=== PATIENT | female | born 1995 | race African-American/Black ===

== ENCOUNTER 2018-05-08 19:48 | Emergency (ER) | payer OTHER | END 2018-05-08 22:18 | disposition home or self-care (01) | LOC: M ED 19:48 | DX: S50.862A Insect bite (nonvenomous) of left forearm, initial encounter (principal); W57.XXXA Bitten or stung by nonvenomous insect and other nonvenomous arthropods, initial encounter; Y92.89 Other specified places as the place of occurrence of the external cause; Z88.0 Allergy status to penicillin; Z79.899 Other long term (current) drug therapy | CPT/HCPCS: 99283 ==

== ENCOUNTER 2018-06-02 13:42 | Emergency (ER) | payer OTHER | END 2018-06-02 15:01 | disposition left against medical advice (07) | LOC: M ED 13:42 | DX: Z53.29 Procedure and treatment not carried out because of patient's decision for other reasons (principal) ==

== ENCOUNTER 2018-06-03 10:25 | Emergency (ER) | payer OTHER ==
[2018-06-03] MEDS: FLEET ENEMA PR (12:12)
[2018-06-03 12:39] LABS: AMORPHOUS SEDIMENT RFX SMALL (NEGATIVE); KETONE, URINE AUTO RFX NEGATIVE (NEGATIVE); LEUKOCYTE ESTERASE UR AUTO RFX NEGATIVE (NEGATIVE); MUCUS, URINE RFX SMALL (NEGATIVE); NITRITE, URINE AUTO RFX NEGATIVE (NEGATIVE); RBC, URINE AUTO RFX 59 /HPF (0-3); SPECIFIC GRAVITY UR AUTO RFX 1.027 (1.002-1.035); SQUAM EPITHELIAL CELL UR AURFX 0 /HPF (0-6); WBC, URINE AUTO RFX 1 /HPF (0-3)
[2018-06-03] MEDS: NS 1,000 ML IV (12:48)
[2018-06-03 12:57] LABS: BASO % 0.5 % (0.0-1.0); EOS # 0.1 10^3/uL (0.0-0.50); EOS % 0.8 % (0.0-3.0); HEMATOCRIT 45.8 % (42.0-52.0); HEMOGLOBIN 15.3 g/dl (13.5-17.5); IMMATURE GRANULOCYTE % 0.2 % (0-3.0); LYMPH # 1.9 10^3/uL (1.5-6.5); LYMPH % 30.9 % (24.0-44.0); MEAN CORPUSCULAR HEMOGLOBIN 27.8 pg (27.0-33.0); MEAN CORPUSCULAR HGB CONC 33.4 g/dl (32.0-36.5); MEAN CORPUSCULAR VOLUME 83.3 fl (80.0-96.0); MONO # 0.8 10^3/uL (0.0-0.8); MONO % 13.2 % (0.0-5.0); NEUTROPHILS # 3.3 10^3/uL (1.8-7.7); NEUTROPHILS % 54.4 % (36.0-66.0); PLATELET COUNT, AUTOMATED 182 10^3/uL (150-450); RED CELL DISTRIBUTION WIDTH 12.7 % (11.5-14.5)
[2018-06-03] MEDS: GASTROGRAFIN SOLUTION 30ML PO ×2 (13:00→13:37)
[2018-06-03 13:22] LABS: ANION GAP 5 MEQ/L (8-16); BLOOD UREA NITROGEN 11 MG/DL (7-18); CALCIUM LEVEL 9.1 MG/DL (8.5-10.1); CARBON DIOXIDE LEVEL 29 MEQ/L (21-32); CHLORIDE LEVEL 106 MEQ/L (98-107); CREATININE FOR GFR 0.84 MG/DL (0.70-1.30); GLOMERULAR FILTRATION RATE > 60.0 (>60); GLUCOSE, FASTING 83 MG/DL (70-100); POTASSIUM SERUM 4.3 MEQ/L (3.5-5.1); SODIUM LEVEL 140 MEQ/L (136-145)
[2018-06-03] MEDS ORDERED: ISOVUE-370 76% 100ML VIAL (Q9967) As Ordered (13:50)
[2018-06-03 16:09] LABS: CONTROL LINE INT CTR LINE PRESENT; HIV SCRN NEGATIVE (NEGATIVE); HIV SCRN1 NEGATIVE (NEGATIVE)
[2018-06-03] MEDS: MAGNESIUM CITRATE 300 ML BTL PO (16:36)
== END 2018-06-03 16:45 | disposition home or self-care (01) ==
LOC: M ED 10:25
DX: K52.9 Noninfective gastroenteritis and colitis, unspecified (principal); N28.1 Cyst of kidney, acquired; Z79.899 Other long term (current) drug therapy; Z88.0 Allergy status to penicillin
CPT/HCPCS: Q9963

== ENCOUNTER 2018-12-02 08:15 | Emergency (ER) | payer OTHER ==
[~2018-12-02] VITALS: Ht 170.2 cm; Wt 63.6 kg
[~2018-12-02 08:15] MED LIST: ACUTANE PO; MIRA3350 PO
[2018-12-02] MEDS ORDERED: TRUVTAB (08:21)
[2018-12-02 08:50] LABS: HEMATOCRIT 54.1 % (42.0-52.0); HEMOGLOBIN 18.1 g/dl (13.5-17.5); MEAN CORPUSCULAR HEMOGLOBIN 27.6 pg (27.0-33.0); MEAN CORPUSCULAR HGB CONC 33.5 g/dl (32.0-36.5); MEAN CORPUSCULAR VOLUME 82.5 fl (80.0-96.0); PLATELET COUNT, AUTOMATED 223 10^3/uL (150-450); RED BLOOD COUNT 6.56 10^6/uL (4.30-6.10)
[2018-12-02 09:12] LABS: AMPHETAMINES LEVEL URINE NEGATIVE (NEGATIVE); BARBITURATES URINE NEGATIVE (NEGATIVE); BENZODIAZEPINES URINE NEGATIVE (NEGATIVE); CANNABINOIDS URINE NEGATIVE (NEGATIVE); COCAINE METABOLITE URINE NEGATIVE (NEGATIVE); METHADONE URINE NEGATIVE (NEGATIVE); OPIATES URINE NEGATIVE (NEGATIVE); PHENCYCLIDINE URINE NEGATIVE (NEGATIVE)
[2018-12-02 09:40] LABS: ACETAMINOPHEN LEVEL < 2.0 UG/ML (10.0-30.0); ALBUMIN 4.7 GM/DL (3.2-5.2); ALT/SGPT 39 U/L (12-78); BILIRUBIN,DIRECT 0.2 MG/DL (0.0-0.2); BILIRUBIN,TOTAL 0.8 MG/DL (0.2-1.0); BLOOD UREA NITROGEN 11 MG/DL (7-18); CALCIUM LEVEL 9.6 MG/DL (8.5-10.1); CARBON DIOXIDE LEVEL 28 MEQ/L (21-32); CHLORIDE LEVEL 105 MEQ/L (98-107); ETHYL ALCOHOL (ETHANOL) < 0.003 % (0.000-0.010); GLOMERULAR FILTRATION RATE > 60.0 (>60); GLUCOSE, FASTING 89 MG/DL (70-100); POTASSIUM SERUM 4.2 MEQ/L (3.5-5.1); SALICYLATE LEVEL < 1.7 MG/DL (5.0-30.0); SODIUM LEVEL 139 MEQ/L (136-145); TOTAL PROTEIN 8.6 GM/DL (6.4-8.2)
--- NOTE | 2018-12-02 11:35 | REP ---
CHEST, TWO VIEWS: There is no evidence of acute infiltrate. No pleural effusion is seen. The heart is normal in size. The mediastinal silhouette is unremarkable. The visualized osseous structures are intact. IMPRESSION: No acute pulmonary disease. Electronically Signed by Kash Mas MD 12/02/2018 12:00 P
[2018-12-02 12:18] VITALS: BP 135/90
[2018-12-02] MEDS ORDERED: PRED20TA PO (17:35)
[2018-12-02] MEDS ORDERED: NORC1TAB4 PO ×2 (17:35→17:39)
--- NOTE | 2018-12-03 07:18 | ECGEPIP ---
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
== END 2018-12-02 12:19 | disposition home or self-care (01) ==
LOC: M ED 08:15
DX: F33.9 Major depressive disorder, recurrent, unspecified (principal); Z88.0 Allergy status to penicillin
CPT/HCPCS: 36415; 71046; 80048; 80076; 80307; 84443; 85027; 93005; 99284; G0480

== ENCOUNTER 2018-12-02 15:26 | Emergency (ER) | payer OTHER ==
[~2018-12-02] VITALS: Ht 170.2 cm; Wt 63.6 kg
[~2018-12-02 15:26] MED LIST changes: +TRUVTAB
[2018-12-02] MEDS ORDERED: PRED20TA PO (17:35)
[2018-12-02] MEDS ORDERED: NORC1TAB4 PO ×2 (17:35→17:39)
[2018-12-02] MEDS ORDERED: NORCO, ANEXSIA 5/325MG TABLET (HYDROcodone/ACETAMINOPHEN) PO ONE (17:45)
[2018-12-02] MEDS ORDERED: predniSONE 20 MG TAB PO ONE (17:45)
[2018-12-02 17:55] VITALS: BP 136/78
[2018-12-02] MEDS ORDERED: NORCO 5/325MG TABLET (BULK FOR ED) PO ONE (18:00)
--- NOTE | 2018-12-03 07:21 | ECGEPIP ---
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 Order Number: [id number] Reading MD: Maritza Trammell Measurements Intervals [place] Rate: 88 P: 49 [place]: 149 QRS: 69 QRSD: 80 T: 52 QT: 322 QTc: 390 Interpretive Statements SINUS RHYTHM INCREASED RATE 12/02/18 Electronically Signed On 12-03-2018 7:20:59 EST by Maritza Trammell
== END 2018-12-02 17:59 | disposition home or self-care (01) ==
LOC: M ED 15:26
DX: M94.0 Chondrocostal junction syndrome [Tietze] (principal); Z79.899 Other long term (current) drug therapy; Z88.0 Allergy status to penicillin

== ENCOUNTER 2019-01-15 09:24 | Emergency (ER) | payer OTHER ==
[~2019-01-15] VITALS: Ht 170.2 cm; Wt 66.4 kg
[~2019-01-15 09:24] MED LIST changes: +NORC1TAB4 PO; +PRED20TA PO
[2019-01-15] MEDS ORDERED: LIDOCAINE 5% (LIDODERM) PATCH TD ONE (10:15)
[2019-01-15] MEDS ORDERED: ACETAMINOPHEN 325 MG TAB PO ONE (10:15)
--- NOTE | 2019-01-15 10:56 | REP ---
LUMBAR SPINE, FIVE VIEWS: HISTORY: Back pain. There is no acute fracture or subluxation. The intervertebral discs are normal in height. The facet joints are normal in appearance. There is spina bifida occulta of S1. IMPRESSION: There is no acute fracture or subluxation. Electronically Signed by Trell Saleh MD 01/15/2019 10:57 A
[2019-01-15] MEDS ORDERED: ACET-683 PO (11:06)
[2019-01-15] MEDS ORDERED: LIDO5DIS41 TD (11:06)
[2019-01-15 11:17] VITALS: BP 131/71
== END 2019-01-15 11:19 | disposition home or self-care (01) ==
LOC: M ED 09:24
DX: R03.0 Elevated blood-pressure reading, without diagnosis of hypertension (principal); Q76.0 Spina bifida occulta; M54.5 Low back pain; G89.29 Other chronic pain; M25.561 Pain in right knee; M25.562 Pain in left knee; Z88.0 Allergy status to penicillin; Z79.899 Other long term (current) drug therapy

== ENCOUNTER 2019-03-27 21:20 | Emergency (ER) | payer OTHER ==
[~2019-03-27] VITALS: Ht 170.2 cm; Wt 70.0 kg
[~2019-03-27 21:20] MED LIST changes: +ACET-683 PO; +LIDO5DIS41 TD; -NORC1TAB4 PO; +NORC1TAB7 PO
[2019-03-27 21:21] VITALS: BP 138/74
[2019-03-27] MEDS ORDERED: HYDR50TA70 (21:25)
[2019-03-27] MEDS ORDERED: DICL75TA (21:25)
[2019-03-27] MEDS ORDERED: TRAZ-252 (21:25)
[2019-03-27] MEDS ORDERED: ESCI10TA2 (21:25)
== END 2019-03-28 00:44 | disposition left against medical advice (07) ==
LOC: M ED 21:20
DX: S69.91XA Unspecified injury of right wrist, hand and finger(s), initial encounter (principal); Z53.21 Procedure and treatment not carried out due to patient leaving prior to being seen by health care provider

== ENCOUNTER → 2020-02-06 | Outpatient (CLI) | payer OTHER ==
[~2020-02-06] MED LIST changes: +DICL75TA; +ESCI10TA2; +HYDR50TA70; +TRAZ-252
--- NOTE | 2020-02-08 07:47 | SLEEPMSLT ---
DATE OF PROCEDURE: 02/06/2020 ORDERING PROVIDER: GEMMA Rodríguez. INTERPRETATION: Nocturnal polysomnography was performed for evaluation of sleep physiology followed by multiple sleep latency testing in this patient with excessive somnolence and nonrestrictive sleep. 8 hours and 3 minutes of data were reviewed. There were 339.5 minutes of sleep identified. Sleep latency was prolonged at 73 minutes. REM latency was short at 55-minute. Sleep architecture was fair with five REM cycles. Overall sleep efficiency was good at 71.2%. The electrocardiogram showed a sinus rhythm with an average heart rate of 68 beats per minute. EEG showed coarsening in background some alpha intrusion consistent with physical discomfort. No focal abnormalities were identified. There were only two respiratory events identified of 10 seconds in duration or greater for an apnea-hypopnea index well within normal limits at 0.4. Snoring was noted. Respiratory related arousals occurred 1.2 times per hour. There was minimal limb activity. Limb movement arousal index 2.7. Nocturnal polysomnography was followed by multiple sleep latency testing. Nap opportunities were offered at 2-hour intervals. Sleep was appreciated on 2 out of 4 nap opportunities. The mean sleep latency was normal at 15.4. IMPRESSION: Normal nocturnal polysomnography with snoring and normal multiple sleep latency testing results.
== END ==
LOC: M SLEEP 20:00
PROVIDERS: ATTEND Nurse Practitioner Family
DX: R06.83 Snoring (principal)